=== PATIENT | female | born 1990 | race American Indian/Alaskan Native ===

== ENCOUNTER 2016-08-19 12:39 | Emergency (ER) | payer SELFPAY ==
[2016-08-19 15:49] LABS: Bacteria,Urine 1+ /HPF (Negative); Bilirubin,Urine NEG (Negative); Blood,Urine LG (Negative); Ketones,Urine NEG (Negative); Leukocyte Esterase,Urine MOD (Negative); Mucus,Urine FEW /HPF; Nitrite,Urine NEG (Negative); Urobilinogen,Urine < 2.0 mg/dL (<2.0)
--- NOTE | 2016-08-19 16:06 | Emergency Department Report ---
ED Back Pain/Injury HPI - General Chief Complaint: Back Pain/Injury Stated Complaint: BACK PAIN Time Seen by Provider: 08/19/16 15:45 Source: patient Limitations: No Limitations - History of Present Illness Initial Comments: Patient comes into the ER today with complaints of right-sided back pain after injuring herself one week ago at work. 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 Patient states that the pain has come on gradually and is getting worse with time. Patient states that with certain movements she gets sharp pain in her right back and has noticed that the right side of her back has been more swollen than the left. Patient also states that over the past couple days she has noticed that towards the end of voiding she has a little pressure and like she needs to go some more. Patient denies any abdominal pain, vaginal discharge , vaginal bleeding, fever, body aches, chills. MD Complaint: back pain, back injury -: week(s) (1) - Related Data Home Medications Medication Instructions Recorded Confirmed Last Taken Sertraline [Zoloft] 25 mg PO QDAY 08/19/16 08/19/16 Unknown Previous Rx's Medication Instructions Recorded Last Taken Type Ciprofloxacin HCl [Ciprofloxacin 500 mg PO BID #14 tablet 08/19/16 Unknown Rx TAB] Cyclobenzaprine [Flexeril] 10 mg PO BID PRN #20 tablet 08/19/16 Unknown Rx Naproxen [Naprosyn TAB] 500 mg PO BID #20 tablet 08/19/16 Unknown Rx traMADol [Ultram 50 MG tab] 50 mg PO Q4HR PRN #20 tablet 08/19/16 Unknown Rx Allergies Allergy/AdvReac Type Severity Reaction Status Date / Time No Known Allergies Allergy Unverified 08/19/16 12:55 ED Review of Systems ROS: Stated complaint: BACK PAIN Other details as noted in HPI Constitutional: denies: chills, fever Eyes: denies: eye pain, eye discharge, vision change ENT: denies: ear pain, throat pain Respiratory: denies: cough, shortness of breath, wheezing Cardiovascular: denies: chest pain, palpitations Endocrine: no symptoms reported Gastrointestinal: denies: abdominal pain, nausea, vomiting, diarrhea, constipation Genitourinary: denies: urgency, dysuria, hematuria, discharge, abnormal menses Musculoskeletal: back pain. denies: joint swelling, arthralgia Skin: denies: rash, lesions Neurological: denies: headache, weakness, paresthesias Psychiatric: denies: anxiety, depression Hematological/Lymphatic: denies: easy bleeding, easy bruising ED Past Medical Hx - Past Medical History Previous Medical History?: Yes Hx Asthma: Yes Additional medical history: Vaginal delivery x 1 - Surgical History Past Surgical History?: No - Social History Smoking Status: Current Every Day Smoker Substance Use Type: Marijuana - Medications Home Medications: Home Medications Medication Instructions Recorded Confirmed Last Taken Type Ciprofloxacin HCl [Ciprofloxacin 500 mg PO BID #14 tablet 08/19/16 Unknown Rx TAB] Cyclobenzaprine [Flexeril] 10 mg PO BID PRN #20 tablet 08/19/16 Unknown Rx Naproxen [Naprosyn TAB] 500 mg PO BID #20 tablet 08/19/16 Unknown Rx Sertraline [Zoloft] 25 mg PO QDAY 08/19/16 08/19/16 Unknown History traMADol [Ultram 50 MG tab] 50 mg PO Q4HR PRN #20 tablet 08/19/16 Unknown Rx ED Physical Exam - General Limitations: No Limitations General appearance: alert, in no apparent distress - Head Head exam: Present: atraumatic, normocephalic - Eye Eye exam: Present: normal appearance - ENT ENT exam: Present: mucous membranes moist - Neck Neck exam: Present: normal inspection, full ROM. Absent: tenderness, lymphadenopathy - Respiratory Respiratory exam: Present: normal lung sounds bilaterally. Absent: respiratory distress - Cardiovascular Cardiovascular Exam: Present: regular rate, normal rhythm. Absent: systolic murmur, diastolic murmur, rubs, gallop - GI/Abdominal GI/Abdominal exam: Present: soft, normal bowel sounds. Absent: distended, tenderness, guarding, rebound, organomegaly - Extremities Exam Extremities exam: Present: normal inspection, full ROM, normal capillary refill. Absent: tenderness, pedal edema, calf tenderness - Back Exam Back exam: Present: normal inspection, tenderness (right lateral lumbar paraspinal muscle tenderness and swelling noted.), muscle spasm, paraspinal tenderness. Absent: full ROM (Limited range of motion secondary to back pain), vertebral tenderness - Neurological Exam Neurological exam: Present: alert, oriented X3, CN II-XII intact, normal gait, reflexes normal. Absent: motor sensory deficit - Psychiatric Psychiatric exam: Present: normal affect, normal mood - Skin Skin exam: Present: warm, dry, intact, normal color. Absent: rash ED Course Vital Signs 08/19/16 12:52 Temperature 98.5 F Pulse Rate 107 H Respiratory 20 Rate Blood Pressure 132/88 O2 Sat by Pulse 98 Oximetry ED Medical Decision Making - Lab Data Lab Results 08/19/16 Range/Units 15:22 Urine Color Yellow (Yellow) Urine Turbidity Cloudy (Clear) Urine pH 6.0 (5.0-7.0) Ur Specific [place] 1.015 (1.003-1.030) Urine Protein 30 mg/dl (Negative) mg/dL Urine Glucose (UA) Neg (Negative) mg/dL Urine Ketones Neg (Negative) mg/dL Urine Blood Lg (Negative) Urine Nitrite Neg (Negative) Urine Bilirubin Neg (Negative) Urine Urobilinogen < 2.0 (<2.0) mg/dL Ur Leukocyte Esterase Mod (Negative) Urine WBC (Auto) 97.0 H (0.0-6.0) /HPF Urine RBC (Auto) 122.0 (0.0-6.0) /HPF U Epithel Cells (Auto) 21.0 H (0-13.0) /HPF Urine Bacteria (Auto) 1+ (Negative) /HPF Ur Transition Epith Cell 2 /HPF Urine Mucus Few /HPF - Medical Decision Making Patient is nontoxic and hemodynamically stable. History and physical exam is more consistent with muscular etiology to patient's complaints. The patient does not have any bony or vertebral body tenderness noted on exam. I see no indication to obtain x-ray imaging at this time. Patient does also have incidental urinary tract infection in addition to her back injury. I will treat the patient accordingly for both and have encouraged patient to limit any strenuous activity or dancing activity over the next 1-2 weeks. Patient is in agreement with treatment plan and patient is stable for discharge. Critical care attestation.: If time is entered above; I have spent that time in minutes in the direct care of this critically ill patient, excluding procedure time. ED Disposition Clinical Impression: Lumbar spine strain, UTI (urinary tract infection) Disposition: - TO HOME OR SELFCARE Is pt being admited?: No Does the pt Need Aspirin: No Condition: Good Instructions: Low Back Strain (ED), Urinary Tract Infection in Women (ED) Prescriptions: Ciprofloxacin HCl [Ciprofloxacin TAB] 500 mg PO BID #14 tablet Cyclobenzaprine [Flexeril] 10 mg PO BID PRN #20 tablet PRN Reason: Muscle Spasm Naproxen [Naprosyn TAB] 500 mg PO BID #20 tablet traMADol [Ultram 50 MG tab] 50 mg PO Q4HR PRN #20 tablet PRN Reason: Pain Referrals: PRIMARY CAREMD [Primary Care Provider] - 3-5 Days JULY LISA MD [Staff Physician] - 3-5 Days Time of Disposition: 16:08
[2016-08-19 16:47] VITALS: BP 129/88
== END 2016-08-19 16:15 | disposition home or self-care (01) ==
LOC: ED 12:39
DX: S39.012A Strain of muscle, fascia and tendon of lower back, initial encounter (principal); N39.0 Urinary tract infection, site not specified; F17.200 Nicotine dependence, unspecified, uncomplicated; J45.909 Unspecified asthma, uncomplicated; X58.XXXA Exposure to other specified factors, initial encounter; Y93.41 Activity, dancing; Y92.89 Other specified places as the place of occurrence of the external cause; Y99.8 Other external cause status
CPT/HCPCS: 81001; 99283